=== PATIENT | female | born 1965 | race Caucasian/White ===

== ENCOUNTER 2019-12-11 08:02 | Inpatient (IN) ==
[2019-12-11] MEDS ORDERED: NS 1,000 ML ONE ×2 (08:16→08:42)
[2019-12-11] MEDS ORDERED: NS 1,000 ML IV ONE ×4 (08:25→12:25)
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
[2019-12-11 08:42] LABS: BASO# 0.02 X1000 (0.0-0.2); BASO% 0.3 % (0.0-0.8); EOS# 0.04 X1000 (0.0-0.7); EOS% 0.6 % (0.0-10.0); HEMATOCRIT 32.1 % (37.0-47.0); HEMOGLOBIN 10.1 g/dL (12.0-16.0); IMM GRAN# 0.04 X1000 (0.0-0.04); IMM GRAN% 0.6 % (0.0-0.5); LYMPH# 1.01 X1000 (1.2-3.4); LYMPH% 14.7 % (20.5-51.1); MCH 31.6 PG (27-31); MCHC 31.5 g/dL (33-37); MCV 100.3 FL (81-99); MONO# 1.04 X1000 (0.11-0.59); MONO% 15.1 % (1.7-9.3); MPV 11.3 FL (7.4-10.4); NEUT# 4.74 X1000 (1.4-6.5); NEUT% 68.7 % (42.2-75.2); PLT 253 X1000 (130-400); RDW 14.1 % (11.5-14.5); WBC 6.89 X1000 (4.8-10.8)
[2019-12-11 08:46] LABS: URINE SOURCE CATH
[2019-12-11 08:59] LABS: URINE WBC TNTC /HPF (<10)
[2019-12-11 09:00] LABS: BILIRUBIN URINE NEGATIVE (NEGATIVE); COLOR YELLOW; GLUCOSE URINE NEGATIVE (NEGATIVE); KETONE URINE NEGATIVE (NEGATIVE); SP GRAVITY URINE 1.021; TURBIDITY URINE TURBID (CLEAR); UR AMPHETAMINES QUAL NONE DETECTED (NONE DETECT); UR BARBITUATES QUAL NONE DETECTED (NONE DETECT); UR BENZODIAZEPIN QUAL PRESUMPTIVE POSITIVE (NONE DETECT); UR CANNABINOIDS QUAL NONE DETECTED (NONE DETECT); UR COCAINE QUAL NONE DETECTED (NONE DETECT); UR EPITHELIAL CELLS <10 /HPF (<10); UR METHADONE QUAL NONE DETECTED (NONE DETECT); UR METHAMPHETAMINE QUAL NONE DETECTED (NONE DETECT); UR OPIATES QUAL PRESUMPTIVE POSITIVE (NONE DETECT); UR OXYCODONE QUAL PRESUMPTIVE POSITIVE (NONE DETECT); UR PCP QUAL NONE DETECTED (NONE DETECT); UR PROPOXYPHENE QUAL NONE DETECTED (NONE DETECT); UR TCA QUAL NONE DETECTED (NONE DETECT); URINE BACTERIA 3+ /HPF; URINE CASTS NONE SEEN; URINE CRYSTALS NONE SEEN; URINE RBC <10 /HPF (<10); URINE SMALL ROUND CELLS NONE SEEN; URINE YEAST NONE SEEN
[2019-12-11 09:01] LABS: BLOOD URINE TRACE (NEGATIVE); PH URINE 5.5; PROTEIN URINE NEGATIVE (NEGATIVE)
[2019-12-11 09:02] LABS: LEUKOCYTES URINE LARGE (NEGATIVE); NITRITE URINE NEGATIVE (NEGATIVE); UROBILINOGEN URINE NORMAL (NORMAL)
[2019-12-11 09:04] LABS: ESTIMATED GFR 10
[2019-12-11 09:07] LABS: ACETAMINOPHEN 14.3 ug/mL (10-30); AGAP 20; ALKALINE PHOSPHATASE 75 U/L (32-104); BUN 61 mg/dL (8-22); CALCIUM 8.7 mg/dL (8.8-10.2); CHLORIDE 96 mmol/L (98-107); COSMO 284; CREATININE 4.5 mg/dL (0.5-0.9); GLUCOSE 106 mg/dL (70-104); GOT 93 U/L (10-30); GPT 42 U/L (10-36); POTASSIUM 3.7 mmol/L (3.5-5.1); SODIUM 133 mmol/L (136-145); TCO2 17 mmol/L (25-35); TOTAL BILIRUBIN < 0.15 mg/dL (0.20-1.00); TOTAL PROTEIN 6.9 g/dL (6.3-8.3)
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
--- NOTE | 2019-12-11 09:35 | Diag Imaging Result Doc PS360 ---
EXAM: RIBS UNILAT W/PA CHEST RIGHT 12/11/2019 HISTORY: fall TECHNIQUE: PA chest and right rib series 3 views COMMENT: There is a calcified granuloma in the right lower lobe. This was also present on 10/11/2017. There is scoliosis of the upper thoracic spine with convexity to the left. No evidence of acute cardiac or pulmonary disease is present and there is no evidence of pneumothorax or pleural fluid. There are old fractures of the lateral left sixth and seventh ribs. The right ribs appear to be intact. IMPRESSION: No evidence of acute disease. Electronically signed by Sandeep Romeo 12/11/2019 9:33 AM
[2019-12-11] MEDS ORDERED: ROCEPHIN 1 GM in NS 50 ML IV ONE (09:45)
[2019-12-11] MEDS ORDERED: NEO-SYNEPHRINE ONE (09:57)
[2019-12-11] MEDS: NEO-SYNEPHRINE 50 MG in NS 250 ML IV SCH ×7 (10:09→17:55)
[2019-12-11 10:53] LABS: HEMATOCRIT 30.5 % (37.0-47.0); HEMOGLOBIN 9.5 g/dL (12.0-16.0); MCH 32.4 PG (27-31); MCHC 31.1 g/dL (33-37); MCV 104.1 FL (81-99); MPV 10.9 FL (7.4-10.4); RBC 2.93 XMIL (4.2-5.4); WBC 4.56 X1000 (4.8-10.8)
[2019-12-11 11:29] LABS: ESTIMATED GFR 12
[2019-12-11 11:30] LABS: AGAP 18; ALBUMIN 2.5 g/dL (3.5-5.0); ALKALINE PHOSPHATASE 63 U/L (32-104); BUN 57 mg/dL (8-22); CALCIUM 7.6 mg/dL (8.8-10.2); CHLORIDE 103 mmol/L (98-107); COSMO 288; CREATININE 3.9 mg/dL (0.5-0.9); GLUCOSE 99 mg/dL (70-104); GOT 72 U/L (10-30); GPT 35 U/L (10-36); POTASSIUM 3.6 mmol/L (3.5-5.1); SODIUM 136 mmol/L (136-145); TCO2 15 mmol/L (25-35); TOTAL BILIRUBIN < 0.15 mg/dL (0.20-1.00); TOTAL PROTEIN 5.6 g/dL (6.3-8.3)
[2019-12-11] MEDS ORDERED: NS 1,000 ML IV SCH ×2 (11:30→16:42)
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
[2019-12-11] MEDS ORDERED: ZOFRAN IV PRN (11:53)
[2019-12-11 12:16] LABS: MAGNESIUM 2.4 mg/dL (1.5-2.7); PHOSPHORUS 4.5 mg/dL (2.7-4.5)
[2019-12-11] MEDS: ZOSYN 2.25 GM in NS 50 ML IV SCH ×2 (12:22→19:56)
[2019-12-11] MEDS ORDERED: SODIUM CHLORIDE 0.9% INJ SCH (13:00)
[2019-12-11] MEDS: PROTONIX IV SCH (13:19)
[2019-12-11] MEDS: ZYVOX 600 MG/D5W 600 MG/300 ML IVPB IV SCH (13:22)
[2019-12-11 16:27] LABS: UR CREAT RANDOM 88.1 mg/dL (11-20); UR PROT RANDOM 62.8 mg/dL
[2019-12-11] MEDS ORDERED: SODIUM BICARBONATE 8.4% 150 MEQ in D5W 1,000 ML IV SCH (16:45)
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
[2019-12-11] MEDS ORDERED: TYLENOL PO PRN (22:43)
[2019-12-11] MEDS ORDERED: ATIVAN IV PRN (22:44)
[2019-12-12] MEDS: ZYVOX 600 MG/D5W 600 MG/300 ML IVPB IV SCH ×2 (01:34→17:16)
[2019-12-12 05:31] LABS: BASO# 0.01 X1000 (0.0-0.2); BASO% 0.2 % (0.0-0.8); EOS# 0.02 X1000 (0.0-0.7); EOS% 0.4 % (0.0-10.0); HEMOGLOBIN 9.3 g/dL (12.0-16.0); LYMPH# 1.21 X1000 (1.2-3.4); LYMPH% 25.4 % (20.5-51.1); MCH 31.1 PG (27-31); MCV 100.3 FL (81-99); MONO# 0.48 X1000 (0.11-0.59); MONO% 10.1 % (1.7-9.3); MPV 10.5 FL (7.4-10.4); NEUT# 3.04 X1000 (1.4-6.5); NEUT% 63.9 % (42.2-75.2); PLT 245 X1000 (130-400); RBC 2.99 XMIL (4.2-5.4); RDW 14.1 % (11.5-14.5); WBC 4.76 X1000 (4.8-10.8)
[2019-12-12 05:51] LABS: ALB/GLOB RATIO 0.8; ALBUMIN 2.2 g/dL (3.5-5.0); CALCIUM 7.5 mg/dL (8.8-10.2); CREATININE 1.5 mg/dL (0.5-0.9); POTASSIUM 3.2 mmol/L (3.5-5.1); TOTAL BILIRUBIN 0.17 mg/dL (0.20-1.00); TOTAL PROTEIN 4.8 g/dL (6.3-8.3)
[2019-12-12] MEDS: ZOSYN 2.25 GM in NS 50 ML IV SCH ×3 (06:08→22:21)
[2019-12-12] MEDS: MORPHINE IV PRN ×3 (06:12→22:19)
[2019-12-12 08:52] LABS: CK INDEX 0.9 (0.0-2.5); CK-MB 9.22 ng/mL (0.0-5.0)
--- NOTE | 2019-12-12 09:24 | Diag Imaging Result Doc PS360 ---
EXAM: US ABDOMEN-COMPLETE INDICATION: ?cholecystitis, YAMILETH COMPARISON: None. FINDINGS: There is a 1 cm shadowing stone in the lumen of the gallbladder. There is no evidence of gallbladder wall thickening or pericholecystic fluid. The common bile duct is at the upper limit of normal measuring 7 mm in diameter. Sonographic Khalil's sign was reported to be negative. The liver is grossly unremarkable. Portal venous flow is hepatopetal. The visualized pancreas is unremarkable. The aorta and IVC are grossly unremarkable. The spleen is very slightly prominent measuring up to 13.8 cm in the greatest dimension. There is a 1.2 cm cyst at the upper pole of the right kidney. The kidneys are grossly unremarkable, otherwise. IMPRESSION: 1.1 cm stone in the gallbladder lumen. No gallbladder wall thickening is appreciated. 2.Very slightly prominent spleen. Electronically signed by Jaamr Osborn 12/12/2019 9:21 AM
[2019-12-12] MEDS ORDERED: NICODERM PATCH TD ONE (10:31)
[2019-12-12] MEDS ORDERED: ATIVAN IV PRN (10:31)
[2019-12-12] MEDS ORDERED: POTASSIUM CHLORIDE 20 MEQ in NS 1,000 ML IV SCH (10:45)
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
[2019-12-12] MEDS: THIAMINE 100 MG in NS 50 ML IV SCH (12:18)
[2019-12-12] MEDS: PROTONIX IV SCH (13:08)
--- NOTE | 2019-12-12 16:20 | Diag Imaging Result Doc PS360 ---
HIDA SCAN W/ EJECTION FRACTION - 12/12/2019 INDICATION: abdominal pain COMPARISON: Ultrasound from 12/12/2019 FINDINGS: 5.4 millicuries of Choletec was administered. There is normal uptake and clearance by the liver. There is normal excretion into the gallbladder and small bowel. A fatty meal was given. The gallbladder ejection fraction is 10%. IMPRESSION: Subnormal gallbladder ejection fraction. This is compatible with chronic cholecystitis.. An abnormally low ejection fraction (less than 35%) can be present in patients without gallbladder dyskinesis or chronic cholelithiasis to have other medical conditions. These include but are not limited to, patients with diabetic mellitus, irritable bowel syndrome, , gastroenteritis. peptic ulcer disease, and patients receiving morphine or nifedipine. Electronically signed by Raul Moore 12/12/2019 4:18 PM
[2019-12-12] MEDS: SODIUM BICARBONATE 8.4% 150 MEQ in D5W 1,000 ML IV SCH (18:43)
[2019-12-12] MEDS: NORCO-10 PO SCH (18:45)
--- NOTE | 2019-12-12 19:05 | GENERAL SURGERY PROGRESS NOTE ---
DATE: 12/12/2019 SUBJECTIVE: The patient complains of lower back pain which is chronic for her and unchanged. She denies any abdominal pain, nausea, or vomiting today. She is hungry. OBJECTIVE: She is afebrile. Vital signs are stable.General: She is awake, alert, oriented x3. No acute distress. GI: Soft, nontender, nondistended. LABORATORY: White cell count 4.7, hemoglobin 9.3, hematocrit 30. Electrolytes reviewed and notable for CK 1031, AST 42, ALT 33, alkaline phosphatase 96, total bilirubin 0.17. IMAGING: Abdominal ultrasound was done today showing a 1 cm stone in the gallbladder lumen without gallbladder wall thickening. The liver is unremarkable. The common bile duct is 7 mm. There is no pericholecystic fluid. Khalil sign was negative. ASSESSMENT AND PLAN: A 54-year-old female who presented with abdominal pain and back pain. She has been found to have a urinary tract infection. She has gallstones. It is unclear if she actually has cholecystitis. We will check a HIDA scan to check for cystic duct obstruction. If that is negative then I would recommend advancing her diet and she can follow up with me as an outpatient for elective cholecystectomy at a later date. cc: Julio Moreau MD
[2019-12-13] MEDS: NORCO-10 PO SCH ×2 (00:47→09:35)
[2019-12-13] MEDS: ZYVOX 600 MG/D5W 600 MG/300 ML IVPB IV SCH (05:52)
[2019-12-13 07:53] LABS: BASO# 0.02 X1000 (0.0-0.2); BASO% 0.4 % (0.0-0.8); EOS# 0.07 X1000 (0.0-0.7); EOS% 1.5 % (0.0-10.0); HEMATOCRIT 27.4 % (37.0-47.0); HEMOGLOBIN 8.6 g/dL (12.0-16.0); LYMPH# 1.25 X1000 (1.2-3.4); MCH 31.6 PG (27-31); MCHC 31.4 g/dL (33-37); MCV 100.7 FL (81-99); MONO# 0.55 X1000 (0.11-0.59); MONO% 11.4 % (1.7-9.3); MPV 10.8 FL (7.4-10.4); NEUT# 2.92 X1000 (1.4-6.5); NEUT% 60.7 % (42.2-75.2); PLT 282 X1000 (130-400); RBC 2.72 XMIL (4.2-5.4); RDW 14.1 % (11.5-14.5); WBC 4.81 X1000 (4.8-10.8)
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
[2019-12-13 08:16] LABS: IRON SATURATION 14 %; TIBC 128 ug/dL; TOTAL IRON 18 ug/dL (49-151); UNBOUND IRON 110 ug/dL (112-346)
[2019-12-13 08:17] LABS: AGAP 8; ALB/GLOB RATIO 0.9; ALBUMIN 2.4 g/dL (3.5-5.0); ALKALINE PHOSPHATASE 89 U/L (32-104); BUN 15 mg/dL (8-22); CALCIUM 7.6 mg/dL (8.8-10.2); CHLORIDE 107 mmol/L (98-107); COSMO 283; CREATININE 0.6 mg/dL (0.5-0.9); ESTIMATED GFR > 60; GLUCOSE 113 mg/dL (70-104); GOT 27 U/L (10-30); GPT 29 U/L (10-36); POTASSIUM 3.2 mmol/L (3.5-5.1); SODIUM 141 mmol/L (136-145); TCO2 26 mmol/L (25-35); TOTAL PROTEIN 5.1 g/dL (6.3-8.3)
[2019-12-13 08:30] LABS: FERRITIN 439 ng/mL (13-150)
[2019-12-13 08:35] LABS: BANDS 2 % (0-1); LYMPHS 22 % (21-51); MONO 14 % (1-9); SEGS 62 % (42-75)
[2019-12-13 08:36] LABS: HYPOCHROM 1+
[2019-12-13 08:47] LABS: CK INDEX 0.8 (0.0-2.5); CK-MB 3.19 ng/mL (0.0-5.0)
[2019-12-13] MEDS ORDERED: NICODERM PATCH TD SCH (09:00)
[2019-12-13] MEDS: ZOSYN 2.25 GM in NS 50 ML IV SCH (09:35)
[2019-12-13] MEDS: SODIUM BICARBONATE 8.4% 150 MEQ in D5W 1,000 ML IV SCH (09:37)
[2019-12-13] MEDS: THIAMINE 100 MG in NS 50 ML IV SCH (11:23)
[2019-12-13 11:41] VITALS: BP 97/66
[2019-12-13] MEDS: PROTONIX IV SCH (12:05)
[2019-12-13] MEDS ORDERED: PNEUMOVAX 23 IM ONE (13:45)
[2019-12-13] MEDS ORDERED: FLU VACCINE IM ONE (13:45)
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
== END 2019-12-13 13:58 | disposition home or self-care (01) | DRG 683 ==
LOC: P.ED 08:02 → P.EDIPHOLD 12:17 → SUATTDRO 12:17 → 4N 22:01
PROVIDERS: ATTEND Emergency Medicine